=== PATIENT | male | born 1980 | race Caucasian/White ===

== ENCOUNTER 2019-01-24 20:28 | Emergency (ER) | payer OTHER ==
[2019-01-24] MEDS ORDERED: Lidocaine 1% (PF) 30 ML VIAL ONE (20:39)
[2019-01-24] MEDS ORDERED: Adacel (T-DAP) 0.5 ML SYRINGE ONE (20:39)
[2019-01-24] MEDS ORDERED: Bacitracin 1 PK ONE (21:34)
== END 2019-01-24 21:56 | disposition home or self-care (01) ==
LOC: NAV ERS 20:28
DX: S61.011A Laceration without foreign body of right thumb without damage to nail, initial encounter (principal); Z23 Encounter for immunization; W26.0XXA Contact with knife, initial encounter
CPT/HCPCS: 12001; 90471; 90715; J2001